=== PATIENT | male | born 1975 | race American Indian/Alaskan Native ===

== ENCOUNTER 2016-07-04 13:15 | Outpatient (CLI) | payer BC ==
[2016-07-04 13:30] LABS: Hemoglobin 13.2 gm/dl (11.8-15.2); Mean Corpuscular HGB Conc 32 % (32-34); Mean Corpuscular Volume 77 fl (84-94); Platelet Count 268 K/mm3 (140-440); Red Blood Count 5.48 M/mm3 (3.65-5.03); Red Cell Distribution Width 15.6 % (13.2-15.2); White Blood Count 7.5 K/mm3 (4.5-11.0)
[2016-07-04 14:01] LABS: Mean Corpuscular Hemoglobin 24 pg (28-32)
[2016-07-04 14:06] LABS: Alanine Aminotransferase 23 units/L (7-56); Albumin 4.1 g/dL (3.9-5); Albumin/Globulin Ratio 1.1 %; Bilirubin,Total 0.3 mg/dL (0.1-1.2); Blood Urea Nitrogen 13 mg/dL (9-20); Calcium 9.4 mg/dL (8.4-10.2); Carbon Dioxide 26 mmol/L (22-30); Cholesterol 203 mg/dL (50-199); Glucose 88 mg/dL (75-100); Total Protein 7.7 g/dL (6.3-8.2); Triglycerides 131 mg/dL (2-149)
[2016-07-04 14:07] LABS: Alkaline Phosphatase 75 units/L (35-129); Anion Gap 18 mmol/L; Chloride 102.1 mmol/L (98-107); HDL Cholesterol 43 mg/dL (40-59); LDL Cholesterol,Direct 134 mg/dL (50-130); Sodium 142 mmol/L (137-145)
== END 2016-07-04 13:16 | disposition home or self-care (01) ==
LOC: LAB 13:15
PROVIDERS: ATTEND Internal Medicine
DX: I10 Essential (primary) hypertension (principal); G47.33 Obstructive sleep apnea (adult) (pediatric); E66.01 Morbid (severe) obesity due to excess calories
CPT/HCPCS: 36415; 80053; 80061; 84439; 84443; 85027